=== PATIENT | female | born 1990 | race Caucasian/White ===

== ENCOUNTER 2019-05-31 05:06 | Inpatient (IN) ==
[2019-05-31] MEDS ORDERED: ONDANSETRON 4 MG/2 ML VIAL IV PRN ×2 (05:16→21:51)
[2019-05-31] MEDS ORDERED: LACTATED RINGERS 500 ML IV PRN (05:16)
[2019-05-31] MEDS ORDERED: MEPERIDINE 50 MG/1 ML VIAL IV PRN (05:16)
[2019-05-31] MEDS ORDERED: BUTORPHANOL 1 MG/ML VIAL IV PRN (05:16)
[2019-05-31] MEDS: LACTATED RINGERS 1,000 ML IV SCH ×2 (05:42→16:11)
[2019-05-31 05:53] LABS: Basophils # 0.1 10*3/uL (0.0-0.2); Basophils % 0.7 % (0.0-0.8); Eosinophils % 0.4 % (0.00-10.9); Hematocrit 33.5 VOL% (35.7-47.0); Hemoglobin 10.8 GM/DL (12.0-16.0); Immature Granulocytes % 0.9 %; Immature Granulocytes Absolute 0.08 #; Lymphocytes # 2.1 10*3/uL (1.4-4.0); Lymphocytes % 22.4 % (21.3-54.2); Mean Corpuscular HGB Conc 32.2 GM/DL (32-36); Mean Corpuscular Volume 92.8 FL (87-102); Mean Platelet Volume 11.8 FL (9.6-12.0); Monocytes % 9.9 % (1.7-12.7); Neutrophils % 65.7 % (38.7-73.9); Platelet Count 221 T/CUMM (130-400); Red Blood Count 3.61 MC/CUMM (3.8-5.5); Red Cell Distribution Width 13.2 % (9.3-17.3); White Blood Count 9.2 T/CUMM (4-12)
[2019-05-31] MEDS ORDERED: OXYTOCIN/LR 20 UNIT/1,000 ML BAG IV SCH (06:00)
[2019-05-31] MEDS ORDERED: AMPICILLIN INJ 2,000 MG in SODIUM CHLORIDE 0.9% 100 ML IV ONE (06:30)
[2019-05-31] MEDS ORDERED: ePHEDrine 50 MG/ML AMP IV PRN (08:10)
[2019-05-31] MEDS ORDERED: hydrOXYzine HCL 25 MG/1 ML VIAL IM PRN (08:10)
[2019-05-31] MEDS ORDERED: diphenhydrAMINE 50 MG/1 ML VIAL IV PRN ×2 (08:10)
[2019-05-31] MEDS ORDERED: NALOXONE 0.4 MG/ML VIAL IV PRN (08:10)
[2019-05-31] MEDS ORDERED: PROMETHAZINE 25 MG/1 ML VIAL IM ONE (08:10)
[2019-05-31] MEDS ORDERED: FAMOTIDINE 20 MG/2 ML VIAL IV ONE (08:12)
[2019-05-31] MEDS ORDERED: CITRIC ACID/SODIUM CITRATE 30 ML UDCUP PO ONE (08:12)
[2019-05-31] MEDS ORDERED: LACTATED RINGERS 1,000 ML IV ONE (08:12)
[2019-05-31] MEDS: fentaNYL 2 MCG/ROPIV 0.2% EPID 100 ML EPIDURAL SCH ×2 (09:48→18:59)
[2019-05-31] MEDS ORDERED: LIDOCAINE 1% 50 ML VIAL ONE (11:03)
[2019-05-31] MEDS ORDERED: miSOPROStoL 200 MCG TABLET ONE ×2 (11:03→11:36)
[2019-05-31] MEDS ORDERED: METHYLERGONOVINE 0.2 MG/1 ML AMP ONE ×2 (11:04→11:37)
[2019-05-31] MEDS ORDERED: LIDOCAINE MPF 2% /EPI 20 ML VIAL ONE (11:35)
[2019-05-31] MEDS ORDERED: CARBOPROST TROMETHAMINE 250 MCG/ML AMP IM ONE (11:37)
[2019-05-31] MEDS ORDERED: TERBUTALINE 1 MG/1 ML VIAL SUBCUT ONE ×2 (11:38→11:41)
[2019-05-31 12:16] LABS: Cord Arterial Blood HCO3 15.7 MMOL/L
[2019-05-31] MEDS ORDERED: ALBUMIN 5% 12.5 GM/250 ML VIAL IV ONE (12:25)
[2019-05-31] MEDS ORDERED: TISSUE ADHESIVE 1 EACH APPLICATOR TOP ONE (12:43)
[2019-05-31] MEDS ORDERED: PROPOFOL 200 MG/20 ML VIAL IV ONE (13:06)
[2019-05-31] MEDS ORDERED: PHENYLEPHRINE 1 MG/10 ML SYRINGE IV ONE (13:07)
[2019-05-31] MEDS ORDERED: ONDANSETRON 4 MG/2 ML VIAL ONE (13:07)
[2019-05-31] MEDS ORDERED: MORPHINE 10 MG/10 ML VIAL ONE (13:07)
[2019-05-31] MEDS ORDERED: ePHEDrine 50 MG/ML AMP IV ONE (13:31)
[2019-05-31 14:25] LABS: Hemoglobin 7.9 GM/DL (12.0-16.0)
[2019-05-31] MEDS ORDERED: ACETAMINOPHEN INJ 1,000 MG in PREMIX 1 EACH IV ONE (15:15)
[2019-05-31 18:11] LABS: Basophils % 0.2 % (0.0-0.8); Hematocrit 23.5 VOL% (35.7-47.0); Hemoglobin 7.6 GM/DL (12.0-16.0); Immature Granulocytes % 0.6 %; Immature Granulocytes Absolute 0.11 #; Lymphocytes % 5.7 % (21.3-54.2); Mean Corpuscular HGB Conc 32.3 GM/DL (32-36); Mean Corpuscular Volume 92.9 FL (87-102); Mean Platelet Volume 11.9 FL (9.6-12.0); Monocytes % 5.9 % (1.7-12.7); Neutrophils % 87.6 % (38.7-73.9); Platelet Count 175 T/CUMM (130-400); Red Blood Count 2.53 MC/CUMM (3.8-5.5); Red Cell Distribution Width 13.4 % (9.3-17.3)
[2019-05-31] MEDS ORDERED: ACETAMINOPHEN 325 MG TABLET PO PRN (21:51)
[2019-05-31] MEDS ORDERED: RHO(D) IMMUNE GLOBULIN 300 MCG SYRINGE IM ONE (21:51)
[2019-05-31] MEDS ORDERED: PROMETHAZINE 25 MG/1 ML VIAL IM PRN (21:51)
[2019-05-31] MEDS ORDERED: LACTATED RINGERS 1,000 ML IV SCH (22:00)
[2019-05-31] MEDS ORDERED: ACETAMINOPHEN 500 MG TABLET PO PRN (22:00)
[2019-06-01 00:42] LABS: Basophils % 0.3 % (0.0-0.8); Hematocrit 21.2 VOL% (35.7-47.0); Hemoglobin 6.9 GM/DL (12.0-16.0); Immature Granulocytes % 0.6 %; Immature Granulocytes Absolute 0.07 #; Lymphocytes # 1.2 10*3/uL (1.4-4.0); Lymphocytes % 9.7 % (21.3-54.2); Mean Corpuscular HGB Conc 32.5 GM/DL (32-36); Mean Platelet Volume 11.2 FL (9.6-12.0); Monocytes % 6.6 % (1.7-12.7); Neutrophils % 82.8 % (38.7-73.9); Platelet Count 153 T/CUMM (130-400); Red Blood Count 2.28 MC/CUMM (3.8-5.5); Red Cell Distribution Width 13.5 % (9.3-17.3); White Blood Count 11.9 T/CUMM (4-12)
[2019-06-01 05:44] LABS: Basophils % 0.2 % (0.0-0.8); Hematocrit 24.8 VOL% (35.7-47.0); Hemoglobin 7.9 GM/DL (12.0-16.0); Immature Granulocytes % 0.6 %; Immature Granulocytes Absolute 0.07 #; Lymphocytes # 1.2 10*3/uL (1.4-4.0); Lymphocytes % 10.1 % (21.3-54.2); Mean Corpuscular HGB Conc 31.9 GM/DL (32-36); Mean Corpuscular Volume 93.2 FL (87-102); Mean Platelet Volume 11.2 FL (9.6-12.0); Monocytes % 7.3 % (1.7-12.7); Neutrophils % 81.8 % (38.7-73.9); Platelet Count 149 T/CUMM (130-400); Red Blood Count 2.66 MC/CUMM (3.8-5.5); Red Cell Distribution Width 13.6 % (9.3-17.3)
[2019-06-01] MEDS: SIMETHICONE CHEW 80 MG TABLET PO PRN (09:04)
[2019-06-01] MEDS: FERROUS SULFATE 325 MG TABLET PO SCH ×2 (09:04→21:10)
[2019-06-01] MEDS: MULTIVITAMIN (PRENATAL) TABLET PO SCH (09:04)
[2019-06-01] MEDS: MAGNESIUM HYDROXIDE SUSP 30 ML UDCUP PO PRN (09:04)
[2019-06-01] MEDS: DOCUSATE SODIUM 100 MG CAPSULE PO SCH ×2 (09:04→21:10)
[2019-06-01] MEDS: IBUPROFEN 800 MG TABLET PO PRN ×2 (09:13→17:55)
[2019-06-02] MEDS: FERROUS SULFATE 325 MG TABLET PO SCH ×2 (08:32→21:10)
[2019-06-02] MEDS: SIMETHICONE CHEW 80 MG TABLET PO PRN ×2 (08:32→21:11)
[2019-06-02] MEDS: MAGNESIUM HYDROXIDE SUSP 30 ML UDCUP PO PRN ×2 (08:32→21:11)
[2019-06-02] MEDS: DOCUSATE SODIUM 100 MG CAPSULE PO SCH ×2 (08:32→21:10)
[2019-06-02] MEDS: IBUPROFEN 800 MG TABLET PO PRN ×2 (08:32→21:13)
[2019-06-02] MEDS: MULTIVITAMIN (PRENATAL) TABLET PO SCH (08:32)
[2019-06-02] MEDS ORDERED: INFLUENZA VIRUS VACCINE 0.5 ML SYRINGE IM ONE (09:00)
[2019-06-03] MEDS: IBUPROFEN 800 MG TABLET PO PRN (06:20)
[2019-06-03 08:20] VITALS: BP 114/68
[2019-06-03] MEDS: FERROUS SULFATE 325 MG TABLET PO SCH (09:05)
[2019-06-03] MEDS: DOCUSATE SODIUM 100 MG CAPSULE PO SCH (09:05)
[2019-06-03] MEDS: MULTIVITAMIN (PRENATAL) TABLET PO SCH (09:05)
== END 2019-06-03 13:05 | disposition home or self-care (01) | DRG 788 ==
LOC: N.LDOUT 05:06 → N.LD 05:09 → N.OB 06-01 08:38
PROVIDERS: ADMIT Obstetrics & Gynecology; ATTEND Obstetrics & Gynecology
PROC: LDCSECT (ICD-10-PCS; 2019-05-31 11:30)